=== PATIENT | male | born 1960 | race Caucasian/White ===

== ENCOUNTER → 2018-10-03 | Outpatient (CLI) | payer OTHER ==
[~2018-10-03] VITALS: Ht 172.7 cm; Wt 80.9 kg
[~2018-10-03] MED LIST: ASPIRIN E.C. 8181 MG PO; CENTRUM SILVER1 CTB PO; LIPITOR 80MG80 MG PO; ZESTRIL 10MG10 MG PO
[2018-10-03 10:01] LABS: INR 1.1 (0.8-3.0); PROTHROMBIN TIME 12.9 SECONDS (9.7-12.8)
--- NOTE | 2018-10-03 11:30 | NUR ---
NURSE CAME BACK INTO THE ROOM FROM ANOTHER PROCEDURE AND FOUND PT GONE. INT INTACT AND LAYING ON THE TABLE. GOWN DRAPED OVER CHAIR. PROCEDURE CANCELLED. NOTIFIED CT AND IR
== END ==
LOC: COL.RAD 10-02 09:00
PROVIDERS: Internal Medicine Gastroenterology
DX: B18.1 Chronic viral hepatitis B without delta-agent (principal)

== ENCOUNTER → 2018-10-20 | Outpatient (CLI) | payer OTHER ==
[2018-10-20] VITALS (11 sets, daily range): BP systolic 124–151; BP diastolic 65–81; PULSE 46–63
[~2018-10-20] VITALS: Ht 172.7 cm; Wt 81.8 kg
--- NOTE | 2018-10-20 09:40 | NUR ---
Pt to ultrasound per ambulation, Pt positioned in ultrasound in supine position on table, monitors applied.
--- NOTE | 2018-10-20 09:53 | NUR ---
Specimens obtained by Dr Milligan and placed in formalin, specimen labeled.
--- NOTE | 2018-10-20 11:58 | NUR ---
pt taken to go to car. Pt brought mother with him to drive him home. Mother does not drive and doesnt have a license. Pt informed of policy as to having a hole digger truck driver after the procedure. Dr Milligan notified of pt not having a hole digger truck driver that he brought his mother to give the appearance of having a hole digger truck driver. Dr Milligan stated pt could drive himself home following the procedure due to not receiving sedation. Pt informed that this was against our policy and for future procedures he would be required to bring a hole digger truck driver. Pt received no sedation during procedure. Pt alert and oriented. Pt denies pain at this time, pt has had no pain following the procedure.
== END ==
LOC: COL.RAD 08:30
DX: B18.1 Chronic viral hepatitis B without delta-agent (principal)
CPT/HCPCS: 32108